=== PATIENT | male | born 1980 | race Caucasian/White ===

== ENCOUNTER → 2017-05-18 | Outpatient (CLI) | payer OTHER | LOC: M PAIN 14:15 | DX: M54.2 Cervicalgia (principal); M79.1 Myalgia; K76.0 Fatty (change of) liver, not elsewhere classified; F17.210 Nicotine dependence, cigarettes, uncomplicated; R06.83 Snoring; Z79.899 Other long term (current) drug therapy; Z88.7 Allergy status to serum and vaccine | CPT/HCPCS: G0463 ==

== ENCOUNTER → 2017-05-27 | Outpatient (CLI) | payer OTHER ==
[~2017-05-27] MED LIST: BUPIVACAINE HCL 0.25% 10 ML VIAL As Ordered; BUPIVACAINE HCL 0.25% 30 ML VIAL As Ordered; TRIAMCINOLONE ACETONIDE SUSP 40 MG/ML VIAL (J3301) As Ordered
== END ==
LOC: M PAIN 13:30
DX: G89.29 Other chronic pain (principal); M54.2 Cervicalgia; M79.1 Myalgia; K76.0 Fatty (change of) liver, not elsewhere classified; Z79.899 Other long term (current) drug therapy; Z88.7 Allergy status to serum and vaccine
CPT/HCPCS: J3301

== ENCOUNTER → 2021-01-08 | Outpatient (CLI) | payer SELFPAY | LOC: M OUTALCOH 07:39 | PROVIDERS: ATTEND Psychiatry & Neurology Psychiatry | DX: Z03.89 Encounter for observation for other suspected diseases and conditions ruled out (principal) ==

== ENCOUNTER 2021-02-03 14:29 | Outpatient (RCR) | payer SELFPAY | END 2021-02-08 | LOC: M OUTALCOH 14:29 | PROVIDERS: ATTEND Psychiatry & Neurology Psychiatry | DX: F10.10 Alcohol abuse, uncomplicated (principal) ==

== ENCOUNTER → 2021-03-10 | Outpatient (RCR) | payer SELFPAY | LOC: M OUTALCOH 02-10 14:38 | PROVIDERS: ATTEND Psychiatry & Neurology Psychiatry | DX: F10.10 Alcohol abuse, uncomplicated (principal) ==

== ENCOUNTER 2021-04-08 16:00 | Outpatient (RCR) | payer SELFPAY | END 2021-04-10 | LOC: M OUTALCOH 16:00 | PROVIDERS: ATTEND Psychiatry & Neurology Psychiatry | DX: F10.10 Alcohol abuse, uncomplicated (principal) ==

== ENCOUNTER 2021-05-07 16:00 | Outpatient (RCR) | payer SELFPAY | END 2021-05-11 | LOC: M OUTALCOH 16:00 | PROVIDERS: ATTEND Psychiatry & Neurology Psychiatry | DX: F10.10 Alcohol abuse, uncomplicated (principal) ==

== ENCOUNTER 2021-06-04 16:00 | Outpatient (RCR) | payer OTHER, SELFPAY | END 2021-06-08 | LOC: M OUTALCOH 16:00 | PROVIDERS: ATTEND Psychiatry & Neurology Psychiatry | DX: F10.10 Alcohol abuse, uncomplicated (principal) ==

== ENCOUNTER 2021-07-06 16:00 | Outpatient (RCR) | payer OTHER | END 2021-07-09 | LOC: M OUTALCOH 16:00 | PROVIDERS: ATTEND Psychiatry & Neurology Psychiatry | DX: F10.10 Alcohol abuse, uncomplicated (principal) ==

== ENCOUNTER 2021-08-03 16:00 | Outpatient (RCR) | payer OTHER | END 2021-08-08 | LOC: M OUTALCOH 16:00 | PROVIDERS: ATTEND Psychiatry & Neurology Psychiatry | DX: F10.10 Alcohol abuse, uncomplicated (principal) ==

== ENCOUNTER 2021-08-20 13:00 | Outpatient (RCR) | payer OTHER | END 2021-09-08 | LOC: M OUTALCOH 13:00 | PROVIDERS: ATTEND Psychiatry & Neurology Psychiatry | DX: F10.10 Alcohol abuse, uncomplicated (principal) ==

== ENCOUNTER 2021-09-24 16:00 | Outpatient (RCR) | payer OTHER | END 2021-10-08 | LOC: M OUTALCOH 16:00 | PROVIDERS: ATTEND Psychiatry & Neurology Psychiatry | DX: F10.10 Alcohol abuse, uncomplicated (principal) ==

== ENCOUNTER 2021-10-29 15:00 | Outpatient (RCR) | payer OTHER | END 2021-11-08 | LOC: M OUTALCOH 15:00 | PROVIDERS: ATTEND Psychiatry & Neurology Psychiatry | DX: F10.20 Alcohol dependence, uncomplicated (principal) ==

== ENCOUNTER 2021-12-11 15:46 | Outpatient (RCR) | payer OTHER | END 2022-01-08 | LOC: M OUTALCOH 15:46 | PROVIDERS: ATTEND Psychiatry & Neurology Psychiatry | DX: F10.20 Alcohol dependence, uncomplicated (principal) ==

== ENCOUNTER 2022-01-15 15:34 | Outpatient (RCR) | payer OTHER | END 2022-02-08 | LOC: M OUTALCOH 15:34 | PROVIDERS: ATTEND Psychiatry & Neurology Psychiatry | DX: F10.20 Alcohol dependence, uncomplicated (principal) ==

== ENCOUNTER 2022-02-23 15:14 | Outpatient (RCR) | payer OTHER | END 2022-03-10 | LOC: M OUTALCOH 15:14 | PROVIDERS: ATTEND Psychiatry & Neurology Psychiatry | DX: F10.20 Alcohol dependence, uncomplicated (principal) ==

== ENCOUNTER 2022-03-30 15:51 | Outpatient (RCR) | payer OTHER | END 2022-04-10 | LOC: M OUTALCOH 15:51 | PROVIDERS: ATTEND Psychiatry & Neurology Psychiatry | DX: F10.20 Alcohol dependence, uncomplicated (principal) ==

== ENCOUNTER 2022-05-04 15:33 | Outpatient (RCR) | payer OTHER | END 2022-05-11 | LOC: M OUTALCOH 15:33 | PROVIDERS: ATTEND Psychiatry & Neurology Psychiatry | DX: F10.20 Alcohol dependence, uncomplicated (principal) ==

== ENCOUNTER → 2022-06-08 | Outpatient (RCR) | payer OTHER | LOC: M OUTALCOH 15:49 | PROVIDERS: ATTEND Psychiatry & Neurology Psychiatry | DX: F10.20 Alcohol dependence, uncomplicated (principal) ==

== ENCOUNTER 2022-07-27 15:59 | Outpatient (RCR) | payer OTHER | END 2022-08-08 | LOC: M OUTALCOH 15:59 | PROVIDERS: ATTEND Psychiatry & Neurology Psychiatry | DX: F10.20 Alcohol dependence, uncomplicated (principal) ==

== ENCOUNTER 2022-09-20 16:00 | Outpatient (RCR) | payer OTHER | END 2022-10-08 | LOC: M OUTALCOH 16:00 | PROVIDERS: ATTEND Psychiatry & Neurology Psychiatry | DX: F10.20 Alcohol dependence, uncomplicated (principal) ==

== ENCOUNTER 2023-03-15 16:49 | Outpatient (RCR) | payer OTHER | END 2023-04-10 | LOC: M OUTALCOH 16:49 | PROVIDERS: ATTEND Psychiatry & Neurology Psychiatry | DX: F10.20 Alcohol dependence, uncomplicated (principal) ==

== ENCOUNTER 2023-05-13 16:00 | Outpatient (RCR) | payer OTHER | END 2023-06-09 | LOC: M OUTALCOH 16:00 | PROVIDERS: ATTEND Psychiatry & Neurology Psychiatry | DX: F10.10 Alcohol abuse, uncomplicated (principal) ==

== ENCOUNTER 2023-06-21 16:01 | Outpatient (RCR) | payer OTHER | END 2023-07-10 | LOC: M OUTALCOH 16:01 | PROVIDERS: ATTEND Psychiatry & Neurology Psychiatry | DX: F10.20 Alcohol dependence, uncomplicated (principal) ==